=== PATIENT | female | born 1980 | race Caucasian/White ===

== ENCOUNTER 2022-12-11 17:27 | Outpatient (NON) | payer OTHER, SELFPAY | END 2022-12-11 17:28 | disposition home or self-care (01) | LOC: ANHLAB 17:28 | PROVIDERS: PCP Physician Assistant; Visit Provider Podiatrist Foot & Ankle Surgery | DX: L03.032 Cellulitis of left toe (principal) | CPT/HCPCS: 87070; 87075; 87077; 87147; 87186; 87205 ==